=== PATIENT | female | born 1985 | race Caucasian/White ===

== ENCOUNTER 2020-09-28 21:54 | Emergency (ER) | payer OTHER ==
[2020-09-28] MEDS ORDERED: Diphtheria,Pertussis(Acell),Tetanus Vaccine 0.5 ML Syringe IM ONE (22:18)
[2020-09-28] MEDS ORDERED: Ondansetron 4 MG/2 ML SDV IVPUSH ONE (22:34)
[2020-09-28] MEDS ORDERED: HYDROmorphone 0.5 MG/0.5 ML Syringe IVPUSH ONE (22:34)
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
[2020-09-29] MEDS ORDERED: Acetaminophen/oxyCODONE 325-5 MG Tab PO ONE (00:42)
--- NOTE | 2020-09-29 09:05 | CR ---
Knee 3V Rt CLINICAL HISTORY: Right knee pain FINDINGS: No fractures identified. There is some mild lateral positioning of the patella on the sunrise view. Some of this may be positional. Impression: Mild lateral positioning of the patella on sunrise view. This is likely positional
--- NOTE | 2020-09-29 09:07 | CR ---
Wrist Comp Min 3V Rt CLINICAL HISTORY: Fall FINDINGS: Patient has a comminuted impacted fracture of the distal radius. There is mild deformity of the scaphoid. This may be positional. Impression: Comminuted impacted fracture distal radius Questionable scaphoid deformity. Recommend follow-up images.
== END 2020-09-29 01:25 | disposition home or self-care (01) ==
LOC: JP.ED 21:54
DX: S52.591A Other fractures of lower end of right radius, initial encounter for closed fracture (principal); S00.83XA Contusion of other part of head, initial encounter; S80.01XA Contusion of right knee, initial encounter; Z23 Encounter for immunization; V49.10XA Passenger injured in collision with unspecified motor vehicles in nontraffic accident, initial encounter; Y92.410 Unspecified street and highway as the place of occurrence of the external cause
CPT/HCPCS: 29125; 36415; 70450; 70486; 72125; 73110; 73562; 80053; 80307; 85025; 90471; 90715; 96374; 96375; 99284; J1170; J2405